=== PATIENT | male | born 1980 | race Two or more races ===

== ENCOUNTER 2016-11-09 21:21 | Emergency (ER) | payer OTHER ==
[~2016-11-09] VITALS: Ht 157.5 cm; Wt 40.8 kg
[2016-11-09 21:44] VITALS: BP 102/64
[2016-11-09] MEDS ORDERED: AZIT250T6 PO (22:21)
[2016-11-09] MEDS ORDERED: D-ME118S2 PO (22:21)
--- NOTE | 2016-11-09 22:22 | PHYS DOC ---
Past Medical History Past Medical History: No Pertinent History Past Surgical History: No Surgical History Alcohol Use: Occasionally Drug Use: None Social History Narrative: CHEWS TOBACCO Adult General Chief Complaint Chief Complaint: SORE THROAT HPI HPI Patient is a 36 year old male who comes emergency room tonight with complaint of progressive nonproductive cough, nasal congestion and bilateral ear pain that began essentially week ago. Patient denies any known ill contacts with anyone similar symptoms. He denies antibiotic use, hospitalization or foreign travel within the past 90 days. Patient is a eyes temperature is been going. He states he's been feeling feverish without shaking with a thermometer. He is not taking any acetaminophen or ibuprofen-containing products within the last 24 hours. Review of Systems Review of Systems Constitutional: Denies fever or chills [] Eyes: Denies change in visual acuity, redness, or eye pain [] HENT: Denies nasal congestion or sore throat [] Respiratory: Denies cough or shortness of breath [] Cardiovascular: No additional information not addressed in HPI [] GI: Denies abdominal pain, nausea, vomiting, bloody stools or diarrhea [] : Denies dysuria or hematuria [] Musculoskeletal: Denies back pain or joint pain [] Integument: Denies rash or skin lesions [] Neurologic: Denies headache, focal weakness or sensory changes [] Endocrine: Denies polyuria or polydipsia [] Allergies Allergies Allergies Coded Allergies Type Severity Reaction Last Updated Verified No Known Drug Allergies 11/09/16 No Physical Exam Physical Exam Constitutional: Well developed, well nourished, no acute distress, non-toxic appearance. Patient is afebrile. HENT: Normocephalic, atraumatic, bilateral external ears normal, oropharynx moist, no oral exudates, boggy nasal mucosa with clear rhinorrhea. Bilateral tympanic membranes are hyperemic and bulging. The margins the umbo are slightly distorted. There is no fluid meniscus or perforation in either tympanic membrane. There is no evidence of mastoiditis. Eyes: PERRLA, EOMI, conjunctiva normal, no discharge. [] Neck: Normal range of motion, no tenderness, supple, no stridor. There is no meningismus. There is bilateral anterior and posterior cervical lymphadenopathy. Cardiovascular:Heart rate regular rhythm, no murmur [] Lungs & Thorax: There is no respiratory distress or respiratory fatigue. There is no posturing or sensory muscle use. Lungs are clear to auscultation bilaterally. Abdomen: Bowel sounds normal, soft, no tenderness, no masses, no pulsatile masses. [] Skin: Warm, dry, no erythema, no rash. Back: No tenderness, no CVA tenderness. [] Extremities: No tenderness, no cyanosis, no clubbing, ROM intact, no edema. [] Neurologic: Alert and oriented X 3, normal motor function, normal sensory function, no focal deficits noted. [] Psychologic: Affect normal, judgement normal, mood normal. [] Current Patient Data Vital Signs Vital Signs Date Time Temp Pulse Resp B/P Pulse Ox O2 Delivery O2 Flow Rate FiO2 11/09/16 21:44 98.6 103 16 97 Room Air 98.6 EKG EKG [] Radiology/Procedures Radiology/Procedures [] Course & Med Decision Making Course & Med Decision Making Pertinent Labs and Imaging studies reviewed. (See chart for details) [] Dragon Disclaimer Dragon Disclaimer This electronic medical record was generated, in whole or in part, using a voice recognition dictation system. Departure Departure Impression: Primary Impression: Upper respiratory infection Additional Impression: Bilateral otitis media Disposition: HOME, SELF-CARE Condition: GOOD Referrals: NO PCP (PCP) Patient Instructions: Otitis Media, Adult, [id number], Upper Respiratory Infection, Adult, [id number] Additional Instructions: 1. You have a viral infections causing your cough and nasal congestion. You have a bacterial infection in both your ears that requires antibiotics. 2. Take the medications as prescribed. You can also take ibuprofen every 8 hours for the pain in your ears. 3. It is important to follow-up with a primary care doctor. Use the pamphlet provided for assistance in finding one. Call tomorrow morning to schedule a follow-up appointment. Scripts D-Methorphan Hb/Prometh Hcl (Promethazine-Dm Syrup)118 Ml Syrup5 Ml PO PRN Q6HRS COUGH #120 ML Prov:MARIALUISA STEPHENS 11/09/16 Azithromycin (Azithromycin Tablet)250 Mg Tablet1 Pkg PO UD #6 TAB Prov:MARIALUISA STEPHENS 11/09/16 Problem Qualifiers Primary Impression: Upper respiratory infection URI type: unspecified viral URI Qualified Code: J06.9 - Acute upper respiratory infection, unspecified Additional Impression: Bilateral otitis media Otitis media type: unspecified Chronicity: unspecified Qualified Code: H66.93 - Otitis media, unspecified, bilateral MARIALUISA STEPHENS Nov 09, 2016 22:21
== END 2016-11-09 22:56 | disposition home or self-care (01) ==
LOC: ER 21:21
DX: J06.9 Acute upper respiratory infection, unspecified (principal); H66.93 Otitis media, unspecified, bilateral
CPT/HCPCS: 99283

== ENCOUNTER 2017-01-17 13:57 | Emergency (ER) | payer OTHER ==
[~2017-01-17] VITALS: Ht 157.5 cm; Wt 46.7 kg
[~2017-01-17 13:57] MED LIST: AZIT250T6 PO; D-ME118S2 PO
--- NOTE | 2017-01-17 15:19 | PHYS DOC ---
Past Medical History Past Medical History: No Pertinent History Past Surgical History: No Surgical History Alcohol Use: Occasionally Drug Use: None Adult General Chief Complaint Chief Complaint: SORE THROAT HPI HPI Patient is a 37 year old male presents to the emergency department with a history of sore throat and body aches for the last 3 days. Patient states he has had a fever although did not take it at home. Patient states he has been taking Ibuprofen at home. Denies nausea, or vomiting, denies cough or congestion. Patient does not speak German he has his own certified court/medical interpreter at bedside. Review of Systems Review of Systems Constitutional: Denies fever or chills [] Eyes: Denies change in visual acuity, redness, or eye pain [] HENT: Denies nasal congestion C/o sore throat [] Respiratory: Denies cough or shortness of breath [] Cardiovascular: No additional information not addressed in HPI [] GI: Denies abdominal pain, nausea, vomiting, bloody stools or diarrhea [] : Denies dysuria or hematuria [] Musculoskeletal: Denies back pain or joint pain [] Integument: Denies rash or skin lesions [] Neurologic: Denies headache, focal weakness or sensory changes [] Endocrine: Denies polyuria or polydipsia [] Allergies Allergies Allergies Coded Allergies Type Severity Reaction Last Updated Verified No Known Drug Allergies 11/09/16 No Physical Exam Physical Exam Constitutional: Well developed, well nourished, no acute distress, non-toxic appearance. [] HENT: Normocephalic, atraumatic, bilateral external ears normal, oropharynx moist, no oral exudates, nose normal. Bilateral TM normal, throat with out erythema, or exudates, redness noted, no uvla deviation noted. Eyes: PERRLA, EOMI, conjunctiva normal, no discharge. [] Neck: Normal range of motion, no tenderness, supple, no stridor. [] Cardiovascular:Heart rate regular rhythm, no murmur [] Lungs & Thorax: Bilateral breath sounds clear to auscultation [] Skin: Warm, dry, no erythema, no rash. [] Back: No tenderness Extremities: No tenderness, no cyanosis, no clubbing, ROM intact, no edema. [] Neurologic: Alert and oriented X 3, normal motor function, normal sensory function, no focal deficits noted. [] Psychologic: Affect normal, judgement normal, mood normal. [] EKG EKG [] Radiology/Procedures Radiology/Procedures [] Course & Med Decision Making Course & Med Decision Making Pertinent Labs and Imaging studies reviewed. (See chart for details) Rapid strep negative. Recommended tylenol or Ibuprofen for fever, chills or generalized body aches. Drink plenty of fluids. Warm salt gargles 4 times a day to help soothe the throat. Coughed drops throat lozenges and Cepacol throat spray may also help the throat. Plenty of rest. Follow-up the primary care physician in the next 5-7 days if you're not feeling better. Signs and symptoms to return to the emergency department has been provided. Discharge instructions to patient with certified court/medical interpreter at bedside. Dragon Disclaimer Dragon Disclaimer This electronic medical record was generated, in whole or in part, using a voice recognition dictation system. Departure Departure Impression: Primary Impression: Pharyngitis Disposition: 01 HOME, SELF-CARE Condition: STABLE Referrals: NO PCP (PCP) Patient Instructions: Viral and Bacterial Pharyngitis, [id number] Additional Instructions: Your Rapid strep negative. tylenol or Ibuprofen for fever, chills or generalized body aches. Drink plenty of fluids such as gatorade, propel or water. Warm salt gargles 4 times a day to help soothe the throat. Coughed drops throat lozenges and Cepacol throat spray may also help the throat. Plenty of rest. Follow-up the primary care physician in the next 5-7 days if you're not feeling better. Return back to emergency prior signs symptoms of become worse. [] CONNOR ISIDRO APRON TRIMMER Jan 17, 2017 15:19
[2017-01-17 15:27] VITALS: BP 104/66
[2017-01-18 06:43] LABS: NEGATIVE OBC STREP NEG; POSITIVE OBC STREP POS
== END 2017-01-17 15:35 | disposition home or self-care (01) ==
LOC: ER 13:57
DX: J02.9 Acute pharyngitis, unspecified (principal)
CPT/HCPCS: 87070; 87880; 99283

== ENCOUNTER 2017-02-27 14:56 | Emergency (ER) | payer SELFPAY ==
[~2017-02-27] VITALS: Ht 157.5 cm; Wt 52.0 kg
[2017-02-27] MEDS ORDERED: CETI1TAB7 PO (15:45)
--- NOTE | 2017-02-27 15:45 | PHYS DOC ---
Past Medical History Past Medical History: No Pertinent History Past Surgical History: No Surgical History Alcohol Use: None Drug Use: None Adult General Chief Complaint Chief Complaint: EARACHE/EAR PAIN HPI HPI Patient is a 37 year old male who presents stating he got water in his ears are a couple days ago when was showering now he he had a buzzing sound in the ears with pain. Patient denies any fever coughing or congestion. He he has had some sneezing. Review of Systems Review of Systems Constitutional: Denies fever or chills [] Eyes: Denies change in visual acuity, redness, or eye pain [] HENT: buzzing in ears after water got in them with sneezing Respiratory: Denies cough or shortness of breath [] Cardiovascular: No additional information not addressed in HPI [] GI: Denies abdominal pain, nausea, vomiting, bloody stools or diarrhea [] : Denies dysuria or hematuria [] Musculoskeletal: Denies back pain or joint pain [] Integument: Denies rash or skin lesions [] Neurologic: Denies headache, focal weakness or sensory changes [] Endocrine: Denies polyuria or polydipsia [] Allergies Allergies Allergies Coded Allergies Type Severity Reaction Last Updated Verified No Known Drug Allergies 11/09/16 No Physical Exam Physical Exam Constitutional: Well developed, well nourished, no acute distress, non-toxic appearance. [] HENT: Normocephalic, atraumatic, bilateral external ears normal, oropharynx moist, no oral exudates, nose normal. [] Bilateral TM appear normal Eyes: PERRLA, EOMI, conjunctiva normal, no discharge. [] Neck: Normal range of motion, no tenderness, supple, no stridor. [] Cardiovascular:Heart rate regular rhythm, no murmur [] Lungs & Thorax: Bilateral breath sounds clear to auscultation [] Abdomen: Bowel sounds normal, soft, no tenderness, no masses, no pulsatile masses. [] Skin: Warm, dry, no erythema, no rash. [] Back: No tenderness, no CVA tenderness. [] Extremities: No tenderness, no cyanosis, no clubbing, ROM intact, no edema. [] Neurologic: Alert and oriented X 3, normal motor function, normal sensory function, no focal deficits noted. [] Psychologic: Affect normal, judgement normal, mood normal. [] EKG EKG [] Radiology/Procedures Radiology/Procedures [] Course & Med Decision Making Course & Med Decision Making Pertinent Labs and Imaging studies reviewed. (See chart for details) Patient is in the ED with complaints of sneezing and water that got in his ears when he was showering. He has no infection. Recommended [id number] swimmer 's ear drops. Discharged with Zyrtec. Follow-up with PCP in 1-2 weeks. Joseph Disclaimer Joseph Disclaimer This electronic medical record was generated, in whole or in part, using a voice recognition dictation system. Departure Departure Impression: Primary Impression: Allergic rhinitis Additional Impression: Otalgia of both ears Disposition: HOME, SELF-CARE Condition: STABLE Referrals: NO PCP (PCP) follow up with your doctor in 1-2 weeks Patient Instructions: Allergic Rhinitis, Otalgia-Brief Additional Instructions: You were seen for seasonal allergies considering your to sneeze as well as water in your ears. Use the prescribed medicines as ordered. You can buy over- the-counter swimmers ear drops and use them Scripts Cetirizine Hcl/Pseudoephedrine (ZYRTEC-D TABLET) 1 Each Tab.er.12h 1 TAB PO BID, #30 TAB Prov: VIDA CLEMONS APRN 02/27/17 Problem Qualifiers Primary Impression: Allergic rhinitis Chronicity: acute Allergic rhinitis trigger: unspecified Allergic rhinitis seasonality: seasonal Qualified Codes: J30.2 - Other seasonal allergic rhinitis VIDA CLEMONS APRN Feb 27, 2017 15:45
== END 2017-02-27 15:55 | disposition home or self-care (01) ==
LOC: ER 14:56
DX: H92.03 Otalgia, bilateral (principal); J30.2 Other seasonal allergic rhinitis
CPT/HCPCS: 99283

== ENCOUNTER 2019-02-26 05:26 | Emergency (ER) | payer OTHER ==
[~2019-02-26] VITALS: Ht 157.5 cm; Wt 51.3 kg
[~2019-02-26 05:26] MED LIST changes: +CETI1TAB7 PO
[2019-02-26 05:30] VITALS: BP 106/59
--- NOTE | 2019-02-26 05:53 | PHYS DOC ---
Past Medical History Past Medical History: No Pertinent History Past Surgical History: No Surgical History Alcohol Use: None Drug Use: None Adult General Chief Complaint Chief Complaint: SORE THROAT HPI HPI Patient is a 39 year old male presenting with sore throat onset 2 days ago occasional cough subjective fever some body aches no sick contacts no other medical problems Current Medications Current Medications Current Medications Medications (Trade) Dose Ordered Sig/Jeff Start Time Stop Time Status Last Admin Dose Admin Dexamethasone Sodium Phosphate (Decadron) 10 mg 1X ONCE 02/26/19 06:00 02/26/19 06:01 UNV Allergies Allergies Allergies Coded Allergies Type Severity Reaction Last Updated Verified No Known Drug Allergies 11/09/16 No Physical Exam Physical Exam Constitutional: Well developed, well nourished, no acute distress, non-toxic appearance. [] HENT: Normocephalic, atraumatic, bilateral external ears normal, oropharynx moist, no oral exudates, nose normal. []Mild erythema of the posterior oropharynx no exudate no lymphadenopathy Eyes: PERRLA, EOMI, conjunctiva normal, no discharge. [] Neck: Normal range of motion, no tenderness, supple, no stridor. [] Cardiovascular:Heart rate regular rhythm, no murmur [] Lungs & Thorax: Bilateral breath sounds clear to auscultation [] Abdomen: Bowel sounds normal, soft, no tenderness, no masses, no pulsatile masses. [] Skin: Warm, dry, no erythema, no rash. [] Back: No tenderness, no CVA tenderness. [] Extremities: No tenderness, no cyanosis, no clubbing, ROM intact, no edema. [] Neurologic: Alert and oriented X 3, normal motor function, normal sensory function, no focal deficits noted. [] Psychologic: Affect normal, judgement normal, mood normal. [] Current Patient Data Vital Signs Vital Signs Date Time Temp Pulse Resp B/P (MAP) Pulse Ox O2 Delivery O2 Flow Rate FiO2 02/26/19 05:30 98.5 80 16 106/59 (75) 97 Room Air 98.5 EKG EKG [] Radiology/Procedures Radiology/Procedures [] Course & Med Decision Making Course & Med Decision Making Pertinent Labs and Imaging studies reviewed. (See chart for details) []Rapid strep negative patient was reassured likely viral given Decadron return precautions discussed no evidence of peritonsillar abscess or other acute pathology moving neck well Dragon Disclaimer Joseph Disclaimer This electronic medical record was generated, in whole or in part, using a voice recognition dictation system. Departure Departure Impression: Primary Impression: Sore throat Disposition: 01 HOME, SELF-CARE Condition: STABLE Patient Instructions: Sore Throat, [id number] ANGELICA JACOBS MD Feb 26, 2019 05:53
[2019-02-26] MEDS ORDERED: DEXAMETHASONE SOD PHOS 20 MG/5 ML VIAL. PO ONE (06:30)
== END 2019-02-26 06:05 | disposition home or self-care (01) ==
LOC: ER 05:26
DX: J02.9 Acute pharyngitis, unspecified (principal); R05 Cough; R50.9 Fever, unspecified; M79.10 Myalgia, unspecified site
CPT/HCPCS: 87070; 87880; 99283; J1100

== ENCOUNTER 2019-06-13 16:21 | Emergency (ER) | payer OTHER ==
[~2019-06-13] VITALS: Ht 157.5 cm; Wt 53.5 kg
[~2019-06-13 16:21] MED LIST changes: -D-ME118S2 PO; +PROM118S9 PO
[2019-06-13 16:57] VITALS: BP 106/63
--- NOTE | 2019-06-13 17:09 | PHYS DOC ---
Past Medical History Past Medical History: No Pertinent History Past Surgical History: No Surgical History Alcohol Use: None Drug Use: None Adult General Chief Complaint Chief Complaint: SORE THROAT HPI HPI Patient is a 39 year old male who presents with throat pain, body aches, fever 3 days. Patient states he's also had coughing and sneezing. Patient rates his overall body aches at a 7 out of 10. Review of Systems Review of Systems Constitutional: fever or chills [] HENT: Denies nasal congestion. sore throat, sneezing [] Respiratory: cough or denies shortness of breath [] Musculoskeletal: generalized bodyaches. Denies back pain or joint pain [] I All other systems were reviewed and found to be within normal limits, except as documented in this note. Allergies Allergies Allergies Coded Allergies Type Severity Reaction Last Updated Verified No Known Drug Allergies 11/09/16 No Physical Exam Physical Exam Constitutional: Well developed, well nourished, no acute distress, non-toxic appearance. [] HENT: Normocephalic, atraumatic, bilateral external ears normal, oropharynx moist, no oral exudates, nose normal. Throat red but no swelling or exudates. Bilateral tympanics red. [] Eyes: PERRLA, EOMI, conjunctiva normal, no discharge. [] Neck: Normal range of motion, no tenderness, supple, no stridor. [] Cardiovascular:Heart rate regular rhythm, no murmur [] Lungs & Thorax: Bilateral breath sounds clear to auscultation [] Abdomen: Bowel sounds normal, soft, no tenderness, no masses, no pulsatile masses. [] Skin: Warm, dry, no erythema, no rash. [] Neurologic: Alert and oriented X 3, normal motor function, normal sensory function, no focal deficits noted. [] Psychologic: Affect normal, judgement normal, mood normal. [] Current Patient Data Vital Signs Vital Signs Date Time Temp Pulse Resp B/P (MAP) Pulse Ox O2 Delivery O2 Flow Rate FiO2 06/13/19 16:57 97.9 79 12 106/63 (77) 100 Room Air 97.9 EKG EKG [] Radiology/Procedures Radiology/Procedures [] Course & Med Decision Making Course & Med Decision Making Ambulatory with a steady gait. Lungs are clear to auscultation all lobes. Throat is reddened but there is no swelling or exudates. Skin is pink warm and dry. Alert and oriented. Speaks in full clear sentences. Bilateral years and reddened. Patient states he took ibuprofen at 1600 before arriving at the emergency room. Patient denies nausea, vomiting, chest pain, shortness of air, abdominal pain, diarrhea, headache, dizziness, numbness or tingling, visual changes. Dragon Disclaimer Dragon Disclaimer This electronic medical record was generated, in whole or in part, using a voice recognition dictation system. Departure Departure Impression: Primary Impression: Otitis media Additional Impressions: Cough Fever Disposition: HOME, SELF-CARE Condition: STABLE Referrals: ANETTE GUERRIER MD (PCP) Patient Instructions: Cough, Adult, Fever, Adult, Otitis Media, Adult Additional Instructions: Follow-up with primary care provider. Take ibuprofen or Tylenol to help with fever and pain. Drink plenty of fluids. Take medication as prescribed. Scripts Methylprednisolone (MEDROL) 4 Mg Tab.ds.pk 1 PKG PO UD, #1 PKG Prov: CONNOR FIGUEROA AD TAKER 06/13/19 Amoxicillin (AMOXICILLIN) 500 Mg Capsule 1 CAP PO BID for 10 Days, #20 CAP Prov: CONNOR FIGUEROA AD TAKER 06/13/19 Problem Qualifiers Primary Impression: Otitis media Otitis media type: unspecified Laterality: bilateral Qualified Codes: H66.93 - Otitis media, unspecified, bilateral Additional Impressions: Fever Fever type: unspecified Qualified Codes: R50.9 - Fever, unspecified CONNOR FIGUEROA AD TAKER Jun 13, 2019 17:09
[2019-06-13 17:34] LABS: INFLUENZA A PATIENT NEGATIVE (NEGATIVE); INFLUENZA B PATIENT NEGATIVE (NEGATIVE)
[2019-06-13] MEDS ORDERED: AMOX500C PO (17:34)
[2019-06-13] MEDS ORDERED: METH4TAB2 PO (17:34)
== END 2019-06-13 17:42 | disposition home or self-care (01) ==
LOC: ER 16:21
DX: H66.93 Otitis media, unspecified, bilateral (principal); R50.9 Fever, unspecified; M79.18 Myalgia, other site; R07.0 Pain in throat; R05 Cough
CPT/HCPCS: 87070; 87804; 87880; 99284